=== PATIENT | female | born 1985 | race Caucasian/White ===

== ENCOUNTER 2020-04-01 11:29 | Outpatient (REF) | payer OTHER, SELFPAY ==
[2020-04-01 13:45] LABS: MANUAL DIFF FLAG NO
[2020-04-01 14:09] LABS: Basophils Absolute Auto 0.1 X10*3/uL (0.0-0.2); Basophils Percent Auto 0.9 % (0-2); Eosinophils Absolute Auto 0.1 X10*3/uL (0.0-0.4); Eosinophils Percent Auto 1.6 % (0-4); Hemoglobin 13.2 g/dl (12.0-16.0); Imm Gran Abs Auto 0.02 X10*3/uL (0.00-0.03); Imm Gran Pct Auto 0.3 % (0.0-0.4); Lymphocytes Absolute Auto 2.2 X10*3/uL (1.2-4.9); Lymphocytes Percent Auto 31.7 % (20-40); Mean Corpuscular HGB Conc 32.2 g/dl (31.0-35.0); Mean Corpuscular Hemoglobin 27.3 pg (27.0-33.0); Mean Corpuscular Volume 84.9 fL (80-98); Mean Platelet Volume 11.2 fL (9.4-12.3); Monocytes Absolute Auto 0.5 X10*3/uL (0.1-1.2); Monocytes Percent Auto 6.5 % (2-11); Neutrophils Absolute Auto 4.1 X10*3/uL (2.0-8.3); Platelet Count 356 X10*3/uL (160-400); Red Blood Count 4.83 X10*6/uL (4.20-5.50); Red Cell Distribution Width 13.1 % (11.0-16.0); White Blood Count 6.9 X10*3/uL (4.8-10.8)
[2020-04-01 14:22] LABS: Alanine Aminotransferase 14 U/L (0-31); Albumin Level 4.7 g/dL (3.5-5.0); Alkaline Phosphatase 68 U/L (39-117); Anion Gap 12 (12-20); Aspartate Amino Transferase 19 U/L (5-31); Bilirubin Total 0.4 mg/dL (0.0-1.0); Blood Urea Nitrogen 9 mg/dL (9-16); Calcium 9.2 mg/dL (8.4-10.2); Carbon Dioxide 30 mmol/L (22-29); Chloride 100 mmol/L (96-108); Cholesterol 252 mg/dL; Estimated Glomerular Filt Rate > 60; Glucose Random 77 mg/dL (60-115); HDL Cholesterol 77 mg/dL; LDL Cholesterol Calculated 155 mg/dl; Potassium 4.3 mmol/l (3.3-5.1); Sodium 138 mmol/L (135-145); Total Protein 8.1 g/dL (6.5-8.0); Triglycerides 102 mg/dL
[2020-04-04 09:31] LABS: TSpotTB Negative (SeeBelow)
== END 2020-04-01 11:30 | disposition home or self-care (01) ==
LOC: HO.10HDL 11:29
PROVIDERS: Visit Provider Internal Medicine
DX: Z02.1 Encounter for pre-employment examination (principal); E78.00 Pure hypercholesterolemia, unspecified
CPT/HCPCS: 36415; 80053; 80061; 85025; 86481

== ENCOUNTER 2021-10-22 10:28 | Outpatient (REF) | payer OTHER, SELFPAY ==
[2021-10-22 13:25] LABS: MANUAL DIFF FLAG NO
[2021-10-22 13:29] LABS: Basophils Absolute Auto 0.1 X10*3/uL (0.0-0.2); Basophils Percent Auto 0.8 % (0-2); Eosinophils Absolute Auto 0.2 X10*3/uL (0.0-0.4); Eosinophils Percent Auto 2.1 % (0-4); Hematocrit 39.9 % (37.0-47.0); Hemoglobin 13.2 g/dl (12.0-16.0); Imm Gran Abs Auto 0.03 X10*3/uL (0.00-0.03); Imm Gran Pct Auto 0.4 % (0.0-0.4); Lymphocytes Percent Auto 26.3 % (20-40); Mean Corpuscular HGB Conc 33.1 g/dl (31.0-35.0); Mean Corpuscular Hemoglobin 26.7 pg (27.0-33.0); Mean Corpuscular Volume 80.8 fL (80.0-98.0); Mean Platelet Volume 11.4 fL (9.4-12.3); Monocytes Absolute Auto 0.4 X10*3/uL (0.1-1.2); Monocytes Percent Auto 5.5 % (2-11); Neutrophils Absolute Auto 4.9 x10*3/uL (2.0-8.3); Neutrophils Percent Auto 64.9 % (45-73); Platelet Count 314 X10*3/uL (160-400); Red Blood Count 4.94 X10*6/uL (4.20-5.50); Red Cell Distribution Width 14.5 % (11.0-16.0); White Blood Count 7.6 X10*3/uL (4.8-10.8)
[2021-10-22 13:45] LABS: Anion Gap 13 (12-20); Blood Urea Nitrogen 9 mg/dL (9-16); Calcium 9.7 mg/dL (8.4-10.2); Carbon Dioxide 26 mmol/L (22-29); Chloride 102 mmol/L (96-108); Cholesterol 237 mg/dL; Estimated Glomerular Filt Rate > 60; Glucose Fasting 77 mg/dL (60-99); HDL Cholesterol 69 mg/dL; LDL Cholesterol Calculated 156 mg/dl; Potassium 4.6 mmol/L (3.3-5.1); Sodium 136 mmol/L (135-145); Triglycerides 60 mg/dL
[2021-10-24 12:56] LABS: TS Negative Control Passed; TS Panel A 0; TS Panel B 0; TS Positive Control Passed; TSpotTB Negative (Negative)
== END 2021-10-22 10:29 | disposition home or self-care (01) ==
LOC: HO.10HDL 10:28
PROVIDERS: Visit Provider Internal Medicine
DX: Z11.1 Encounter for screening for respiratory tuberculosis (principal); E78.00 Pure hypercholesterolemia, unspecified; Z83.3 Family history of diabetes mellitus
CPT/HCPCS: 36415; 80048; 80061; 85025; 86481

== ENCOUNTER 2023-09-16 07:39 | Outpatient (REF) | payer OTHER, SELFPAY ==
[2023-09-16 10:56] LABS: MANUAL DIFF FLAG NO
[2023-09-16 10:58] LABS: Basophils Absolute Auto 0.1 X10*3/uL (0.0-0.2); Basophils Percent Auto 1.2 % (0-2); Eosinophils Absolute Auto 0.1 X10*3/uL (0.0-0.4); Eosinophils Percent Auto 2.1 % (0-4); Hematocrit 39.3 % (37.0-47.0); Imm Gran Abs Auto 0.01 X10*3/uL (0.00-0.03); Imm Gran Pct Auto 0.2 % (0.0-0.4); Lymphocytes Absolute Auto 1.8 X10*3/uL (1.2-4.9); Lymphocytes Percent Auto 31.8 % (20-40); Mean Corpuscular HGB Conc 33.1 g/dl (31.0-35.0); Mean Corpuscular Hemoglobin 26.1 pg (27.0-33.0); Mean Corpuscular Volume 78.8 fL (80.0-98.0); Mean Platelet Volume 10.2 fL (9.4-12.3); Monocytes Absolute Auto 0.3 X10*3/uL (0.1-1.2); Monocytes Percent Auto 5.7 % (2-11); Neutrophils Absolute Auto 3.4 x10*3/uL (2.0-8.3); Platelet Count 385 X10*3/uL (160-400); Red Blood Count 4.99 X10*6/uL (4.20-5.50); Red Cell Distribution Width 14.2 % (11.0-16.0); White Blood Count 5.8 X10*3/uL (4.8-10.8)
[2023-09-16 11:38] LABS: Anion Gap 9 (12-20); Blood Urea Nitrogen 10 mg/dL (9-16); Calcium 9.4 mg/dL (8.4-10.2); Carbon Dioxide 32 mmol/L (22-29); Chloride 103 mmol/L (96-108); Cholesterol 239 mg/dL (<200); Estimated Glomerular Filt Rate > 60; Glucose Fasting 92 mg/dL (60-99); HDL Cholesterol 71 mg/dL (>40); LDL Cholesterol Calculated 159 mg/dL (<100); Potassium 4.4 mmol/L (3.3-5.1); Sodium 140 mmol/L (135-145); Triglycerides 49 mg/dL (<150)
[2023-09-19 13:03] LABS: TS Negative Control Passed; TS Panel A 0; TS Panel B 0; TS Positive Control Passed; TSpotTB Negative (Negative)
== END 2023-09-16 07:40 | disposition home or self-care (01) ==
LOC: HO.10HDL 07:39
PROVIDERS: Visit Provider Internal Medicine
DX: Z00.00 Encounter for general adult medical examination without abnormal findings (principal); Z11.1 Encounter for screening for respiratory tuberculosis; E78.00 Pure hypercholesterolemia, unspecified
CPT/HCPCS: 36415; 80048; 80061; 85025; 86481

== ENCOUNTER 2025-01-04 09:11 | Outpatient (AMB) | payer OTHER, SELFPAY ==
--- NOTE | 2025-01-04 09:07 | A.OFFPC_ITS ---
Vital Signs 01/04/25 09:12 01/04/25 09:14 Height 5 ft 2.5 in Weight 170 lb BMI 30.6 BP 158/100 H Blood Pressure Location Lt brachial Position Sitting Respiration 17 Pulse 102 H Pulse Source Pulse Oximeter Temp 97.2 F Temp Source Temporal Artery Scan Pulse Oximetry (%) 98 Oxygen Delivery Method Room Air Intake Visit Reasons: Routine Sign Letterer Required: No Accompanied by: Self / Same As Patient Allergies No Known Allergies Allergy (Verified 01/04/25 09:08) Tobacco use date assessed: 01/04/25 HPI HPI Comments History of Present Illness Details 39 year old female with a past medical h sitory of hyperlipidemia, eczema, allergic rhinitis, presenting for CPE . Last seen by PCP in Dec Patient continues to suffer from allergies. She switched from claritin to augusto about 6 months ago. Continues to have audible nasal congestion, rhinitis, PND, head fullness. Saw rehanger when 11 had dust mite allergies in addition to others. She would like referral to allergy She has not been sexually active. 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 HEENT: Denies changes in vision and hearing. RESPIRATORY: Denies SOB and cough. CV: Denies palpitations and CP GI: Denies abdominal pain, nausea, vomiting and diarrhea. : Denies dysuria and urinary frequency. MSK: Denies new myalgia and joint pain. SKIN: Denies rash and pruritus. NEUROLOGICAL: Denies headache PSYCHIATRIC: Denies recent changes in mood. PHYSICAL EXAM: GENERAL: Alert and oriented x 3. NAD EYES: EOMI. Anicteric. HENT: Moist mucous membranes. No scleral icterus. No cervical lymphadenopathy. LUNGS: Clear to auscultation bilaterally. CARDIOVASCULAR: Regular rate and rhythm. No murmur. No JVD. ABDOMEN: Soft, non-tender +bs EXTREMITIES: No edema. Non-tender. SKIN: No rashes or lesions. Warm. NEUROLOGIC: No focal neurological deficits. CN II-XII grossly intact PSYCHIATRIC: Cooperative. Appropriate mood and affect FORMERLY [facility], 1928–1983 Social History Patient Tobacco Use Status: Never used Tobacco e-Cigarette/Vaping Use: Never Used Questionnaire AUDIT C Alcohol Use Questionnaire (AUDIT-C) 1. How often do you have a drink containing alcohol?: Never Total Score: 0 Physical exam (Primary Care) Vital Signs: Last Vital Signs Temp 97.2 F 01/04/25 09:14 Pulse 102 H 01/04/25 09:14 Resp 17 01/04/25 09:14 BP 158/100 H 01/04/25 09:14 Pulse Ox 98 01/04/25 09:14 Oxygen Delivery Method Room Air 01/04/25 09:14 BMI result Body Mass Index 30.6 Tobacco/Smoking Status: Tobacco use Status Tobacco use date assessed 01/04/25 01/04/25 09:09 Patient Tobacco Use Status Never used Tobacco 01/04/25 09:16 e-Cigarette/Vaping Use Never Used 01/04/25 09:09 Coding Level of Care Code New Pt Prev Care 40-64y(66062) Diagnoses Physical exam Z00.00 Hyperlipidemia E78.5 Screening for metabolic disorder Z13.228 Allergic rhinitis, unspecified seasonality, unspecified trigger J30.9 Allergic rhinitis trigger: unspecified Allergic rhinitis seasonality: unspecified Assessment & Plan Assessment & Plan (1) Physical exam: Code(s): Z00.00 - Encounter for general adult medical examination without abnormal findings Category: Medical (2) Hyperlipidemia: Code(s): E78.5 - Hyperlipidemia, unspecified Category: Medical (3) Screening for metabolic disorder: Code(s): Z13.228 - Encounter for screening for other metabolic disorders Category: Medical (4) Allergic rhinitis: Code(s): J30.9 - Allergic rhinitis, unspecified Category: Medical Qualifiers: Allergic rhinitis trigger: unspecified Allergic rhinitis seasonality: unspecified Qualified Code(s): J30.9 - Allergic rhinitis, unspecified Plan 39 year old to establish care/cpe past medical, surgical, social reviewed Preventive measures for age discussed Mammo ordered. merchandising professor referral Allergic rhinitis-referral to allergy Labs ordered Orders: Orders MM tomosynthesis screening BI Today E78.5 - Hyperlipidemia, unspecified, Z01.419 - Encounter for gynecological examination (general) (routine) without abnormal findings, Z12.31 - Encounter for screening mammogram for malignant neoplasm of breast, Z13.0 - Encounter for screening for diseases of the blood and blood-forming organs and certain disorders involving the immune mechanism, Z13.228 - Encounter for screening for other metabolic disorders Complete Blood Count Auto Diff Today E78.5 - Hyperlipidemia, unspecified, Z01.419 - Encounter for gynecological examination (general) (routine) without abnormal findings, Z13.0 - Encounter for screening for diseases of the blood and blood-forming organs and certain disorders involving the immune mechanism, Z13.228 - Encounter for screening for other metabolic disorders Lipid Panel Today E78.5 - Hyperlipidemia, unspecified, Z01.419 - Encounter for gynecological examination (general) (routine) without abnormal findings, Z13.0 - Encounter for screening for diseases of the blood and blood-forming organs and certain disorders involving the immune mechanism, Z13.228 - Encounter for screening for other metabolic disorders TSH reflex Free T4 Today E78.5 - Hyperlipidemia, unspecified, Z01.419 - Encounter for gynecological examination (general) (routine) without abnormal fin dings, Z13.0 - Encounter for screening for diseases of the blood and blood- forming organs and certain disorders involving the immune mechanism, Z13.228 - Encounter for screening for other metabolic disorders Comprehensive Met. Panel Today E78.5 - Hyperlipidemia, unspecified, Z01.419 - Encounter for gynecological examination (general) (routine) without abnormal findings, Z13.0 - Encounter for screening for diseases of the blood and blood- forming organs and certain disorders involving the immune mechanism, Z13.228 - Encounter for screening for other metabolic disorders Hemoglobin A1c Today E78.5 - Hyperlipidemia, unspecified, Z01.419 - Encounter for gynecological examination (general) (routine) without abnormal findings, Z13.0 - Encounter for screening for diseases of the blood and blood-forming organs and certain disorders involving the immune mechanism, Z13.228 - Encounter for screening for other metabolic disorders Referrals EMS COORDINATOR Referral Z01.419 - Encounter for gynecological examination (general) (routine) without abnormal findings Allergy & Immunology Referral J30.9 - Allergic rhinitis, unspecified
[2025-01-04 09:12] VITALS: BMI 30.6
[2025-01-04 09:14] VITALS: BP 158/100; PULSE 102; RESP 17; TEMP 36.2; O2SAT 98
--- OUTSIDE RECORDS SUMMARY | 2025-01-04 09:33 | XMS_ITS ---
Author Name [facility] Organization Unknown Encounters Encounter Type Encounter Reason Primary Diagnosis Location Date Ambulatory [facility] ([facility] 05/13/2022 Care Team Organization Name Specialty Phone Email [facility] Date [facility]
== END 2025-01-04 09:29 | disposition home or self-care (01) ==
LOC: HO.HMCHD 09:11
PROVIDERS: PCP Internal Medicine; Visit Provider Internal Medicine
DX: Z00.00 Encounter for general adult medical examination without abnormal findings (principal); E78.5 Hyperlipidemia, unspecified; Z13.228 Encounter for screening for other metabolic disorders; J30.9 Allergic rhinitis, unspecified

== ENCOUNTER → 2025-01-04 09:11 | Outpatient (BNVA) | payer OTHER, SELFPAY | PROVIDERS: PCP Internal Medicine; Visit Provider Internal Medicine | DX: Z00.00 Encounter for general adult medical examination without abnormal findings (principal); E78.5 Hyperlipidemia, unspecified; J30.9 Allergic rhinitis, unspecified | CPT/HCPCS: 99386 ==

== ENCOUNTER 2025-03-28 15:23 | Outpatient (REF) | payer OTHER, SELFPAY ==
--- OUTSIDE RECORDS SUMMARY | 2025-03-28 19:44 | XMS_ITS | Data Portability ---
Author Organization [facility] [address] Address [address] [place] [address] Assessment No assessment recorded. Plan of Treatment Reminders Order Date Submit Date Provider Last Modified By Organization Details Last Modified Time Details Appointments None recorded. Lab rapid SARS CoV 2 Ag, QL IA, respiratory specimen 2021 [place] [id number], [address], 14:53:56 Referral None recorded. Procedures None recorded. Surgeries None recorded. Imaging None recorded. Medication Orders benzonatate 200 mg capsule 2021 [facility]/Pharmacy #[id number], [address] [place], [address], 14:53:56 loratadine 10 mg tablet [address]/Pharmacy #[id number], [address] [place], [address], 15:21:12 Patient TargetsNo targets recorded. Patient Instructions Encounter Date Encounter Id Patient Instructions Last Modified By Organization Details Last Modified Time 05/07/2022 [id number] coronavirus (covid-19): care instructions [place] [id number] Not available 05/07/2022 14:53:56 You have been Diagnosed with COVID - your Rapid COVID test was positive. I recommend the following to help with your symptoms of this viral infection: 1. Take Ibuprofen or Tylenol if you do not have any allergies to these medications. If you take a blood thinner you should not take NSAIDS like Ibuprofen. These medication will help with the inflammation in your respiratory tract which should help the cough. 2. I suggest taking a Antihistamine (loratadine or cetirizine or Amaris or benadryl) - to help with the congestion. I would advise this over a decongestant. 3. Saline Nasal Rice 4. Salt Water Gargles. I would be seen again immediately in the Emergency Room if you develop: 1. Shortness of Breath 2. Chest Pain 3. Fever > 101.0 4. Lethargy or Confusion. You should notify you PCP that you have been diagnosed with this infection. Below is the current CDC guidelines. Updated CDC Guidelines for Quarantine and Testing - 06/07/2021 If You Test Positive for COVID-19 (Isolate) Everyone, regardless of vaccination status. 1. Stay home for 5 days. 2. If you have no symptoms or your symptoms are resolving after 5 days, you can leave your house. 3. Continue to wear a mask around others for 5 additional days. If you have a fever or feel worse, continue to stay home until your fever resolves. If You Were Exposed to Someone with COVID-19 (Quarantine) If you: Have been boosted OR Completed the primary series of Pfizer or Moderna vaccine within the last 6 months. OR Completed the primary series of J&J vaccine within the last 2 months 1. Wear a mask around others for 10 days. 2. Test on day 5, if possible. 3. If you develop symptoms get a test and stay home. If you: Completed the primary series of Pfizer or Moderna vaccine over 6 months ago and are not boosted OR Completed the primary series of J&J over 2 months ago and are not boosted OR Are un-vaccinated 1. Stay home for 5 days. After that continue to wear a mask around others for 5 additional days. 2. Test on day 5, if possible. If you develop symptoms get a test and stay home Quarantine Calculation: Day 0: is the first day of symptoms or a positive viral test. Day 1: is the first full day after your symptoms developed or when your test specimen was collected. Exposure: Day 1: is the first full day after your last known contact with a person that tested positive for COVID 19. [facility] Thank you for visiting [facility] today, please feel free to call our office you have any questions or concerns. [email or web address] Not available 05/07/2022 14:39:52 Reason for Referral None Reported. Results Created Date Observation Date Name Description Value Unit Range Abnormal Flag Note LastModifiedBy Organization Detail LastModifiedTime 05/07/20 22 05/07/2022 rapid SARS CoV 2 Ag, QL IA, respi rator y speci men Unknown Analyte Normal =Negat pavithra Not Available [address], [address], 05/07/2022 14:08:37 05/07/20 22 05/07/2022 rapid SARS CoV 2 Ag, QL IA, respi rator y speci men Unknown Analyte positi ve Not Available [address] [address], [address], 05/07/2022 14:08:37 Result Notes None recorded. Problems No Known Problems Medical Equipment None Reported. Allergies No known drug allergies Medications Name Sig Start Date Stop Date Status Note LastModified by Organization Details LastModified Time benzonatate 200 mg capsule TAKE 1 CAPSULE BY MOUTH THREE TIMES A DAY active Not Available Not Available No t Available prednisone 20 mg tablet TAKE 1 TABLET BY MOUTH EVERY DAY 05/07 completed Not Available Not Available Not Available fluticasone propionate 50 mcg/actuati on nasal spray,suspe nsion USE 1 SPRAY INTO BOTH NOSTRILS TWICE A DAY 05/07 completed Not Available Not Available Not Available loratadine 10 mg tablet TAKE 1 TABLET BY MOUTH EVERY DAY active Not Available Not Available No t Available loratadine 10 mg capsule Take by oral route. active Not Available Not Available No t Available Vitals Date Recorded Systolic And Diastolic Provider Name and Address Organization Details Last Updated DateTime 05/07/2022 124/70 mm[Hg] JESUS CALDERON [address] [place], [address], [place] - [facility] 05/07/2022 15:21:12 Date Recorded Oxygen saturation Oxygen saturation in Arterial blood by Pulse oximetry Heart rate Respiratory rate Body temperature Systolic And Diastolic Systolic And Diastolic Provider Name and Address Organization Details Last Updated DateTime 98 % 98 % 94 /min 18 /min 98.5 [degF] 171/119 mm[Hg] 164/92 mm[Hg] Eula Stanley PA - [facility] 2 14:31:26 Date Recorded Body height Body mass index (BMI) Body weight Provider Name and Address Organization Details Last Updated DateTime 05/07/2022 158.75 cm 30.1 kg/m2 43580.93 g FOSTER SHERIDAN PA - [facility] 05/07/2022 14:10:22 Social History Question Answer Notes LastModified by Self-A-r-T Details LastModified Time Tobacco Smoking Status Never Smoker FOSTER dillon [place] - [facility] 05/07/2022 14:09:56 What Is The Highest Grade Or Level Of School You Have Completed Or The Highest Degree You Have Received? [id number] [email or web address] Information not available 05/07/2022 What Is Your Water Source? City [email or web address] Information not available 05/07/2022 What Is Your Heat Source? Electric Information not available 05/07/2022 Have You Had Direct Contact, Or Contact During Intimacy, With Monkeypox Rash, Scabs, Or Body Fluids From A Person With Monkeypox? No [email or web address] Information not available 05/07/2022 What Is Your Relationship Status? Unknown Information not available 05/07/2022 Have You Recently Traveled Abroad? No Information no t available 05/07/2022 Are You Currently In School? No Information not available 05/07/2022 Sex: Unknown Functional Status Question Answer Note LastModified by Self-A-r-T Details LastModified Time Do you use any illicit or recreational drugs? No [email or web address] Information not available 05/07/2022 Do you or have you ever used any other forms of tobacco or nicotine? No [email or web address] Information not available 05/07/2022 What is your level of alcohol consumption? None [email or web address] Information not available 05/07/2022 Are you currently employed? No [email or web address] Information not available 05/07/2022 Mental Status None recorded. Family History Relationship Description Onset Age of this Age Resolved Age Notes LastModified by Organization Details LastModified Time Father No current problems or disability [email or web address] Not available 05/07/2022 14:09:47 Mother No current problems or disability [email or web address] Not available 05/07/2022 14:09:47 Medical History No medical history recorded. Gynecological HistoryNo gynecological history recorded. Obstetrics History GPAL:G 0 P 0 0 0 0 Past Encounters Encounter ID Performer Location Encounter Start Date Encounter Closed Date Diagnosis/Indication Diagnosis SNOMED-CT Code Diagnosis ICD10 Code Diagnosis IMO Codes Diagnosis Note [id number] [address] [place] [address] 10/28/2021 09:11:34 10/28/2021 12:15:50 [id number] [address] [place] [address] 10/02/2021 09:02:22 10/02/2021 10:09:21 [id number] [address] [place] [address] 05/01/2021 08:46:44 05/01/2021 12:06:31 [id number] JESUS CALDERON [address] [place] [address] 05/07/2022 10:32:52 05/07/2022 14:52:27 COVID-19 [id number] U07.1 Health Concerns Section Related Observation LastModified by Organization Detai ls LastModified Time None Recorded Concern Status LastModified by Organization Details LastModified Time None Recorded Advance Directives Directive None Recorded Payers Insurance Date Sequence Insurance Name Policy Number Policy Samayoa Covered Member ID Samayoa Member ID Guarantor Name 05/26/2022 1 [facility] [id number] Mahnaz Pak [id number] Mahnaz Pak Notes Date Note Type Note Provider Name and Address Organization Details Recorded Time 2 text/html COVID-19 SymptomsReported by PatientUpper Respiratory SymptomsFor covid-19 signs and symptoms, patient reportscough worsening. CoughReported by PatientHPIFor timing, patient reportsworseningbut reportsgradual. For associated symptoms, patient reportspost nasal dripbut reportsno fever,no chills,no nausea, andno vomiting. For source of patient information, patient reportsinformation obtained from patientandpatient arrived at urgent care ambulatory. For severity, patient reportsmild. For duration, patient reports5 days.The patient reports had like a cold last week. Noticed in the last 2 days symptoms worsened. Her client has been having a bad cough and has been sick since Wednesday. The patient does not have a fever. The patient denies sOB but has history of asthma. JESUS CALDERON [address] [place], [address], [place] - [facility] 05/07/2022 15:21:20 OBGyn Episode No OBEpisode recorded.
== END 2025-03-28 15:24 | disposition home or self-care (01) ==
LOC: HO.MAMMO 15:23
PROVIDERS: PCP Internal Medicine; Visit Provider Internal Medicine
DX: Z12.31 Encounter for screening mammogram for malignant neoplasm of breast (principal)
CPT/HCPCS: 77063; 77067

== ENCOUNTER → 2025-03-28 15:45 | Outpatient (BNV) | payer OTHER, SELFPAY | PROVIDERS: PCP Internal Medicine; Visit Provider Radiology Body Imaging | DX: Z12.31 Encounter for screening mammogram for malignant neoplasm of breast (principal) | CPT/HCPCS: 77063; 77067 ==

== ENCOUNTER 2025-04-30 09:23 | Outpatient (AMB) | payer OTHER, SELFPAY ==
--- NOTE | 2025-04-30 09:27 | A.OFFPC_ITS ---
Vital Signs 04/30/25 09:31 Height 5 ft 2.5 in Weight 74.389 kg BMI 29.5 Respiration 16 Pulse 104 H Pulse Source Pulse Oximeter Temp 97.9 F Temp Source Oral Pulse Oximetry (%) 96 Oxygen Delivery Method Room Air Intake Visit Reasons: work paperwork and req. 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 Accompanied by: Self / Same As Patient Allergies No Known Allergies Allergy (Verified 04/30/25 09:27) Medication List - Last Reconciled 04/30/25 by JESUS Alegria fexofenadine (Amaris Allergy) 180 mg PO DAILY triamcinolone acetonide 0.5% appl topical Tobacco use date assessed: 01/04/25 Dental Screening Did you have a dental visit in the last 12 months?: Yes Did you have a dental problem in the last 6 months where you did not have access to dental care?: No Was dental information given to patient?: Patient has dentist HPI HPI Comments History of Present Illness Details History of Present Illness The patient is a 40 year old individual presenting for follow-up and requires te sting for work Allergic rhinitis: - The patient has a long-standing histor y of allergies, with persistent nasal congestion for the last four to five months. - Allergy testing revealed allergies to environmental sources including dust, dust mites, dogs, cats, mold, and an unspecified plant. - There are no food allergies. - The patient denies associated sore thr oat or rashes. - The patient started allergy immunother apy shots about a month ago, which are administered weekly and will later transition to monthly. - The patient uses Amaris and previousl y tried Claritin without effect. Overweight: - The patient has a BMI of 29.5. - The patient reports eating unhealthily and being inactive. Health Maintenance: - The patient's first mammogram was on O and was normal, though it noted dense breast tissue. - The patient is overdue for gynecologic al exam but has one scheduled for May 21. - The patient requires a TB test for wor k but did not complete a previous lab o rder for it. Medical History: - Allergic rhinitis, with known allergie s to dust, dust mites, dogs, cats, and mold - Childhood asthma, resolved Surgical History: - No prior surgeries reported. 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 - Nutrition: Reports consuming an unheal thy diet and drinks iced coffee with syrup. - Exercise: Reports being inactive and n ot exercising. - Sexual History: Reports never having b een sexually active. Family History: - Mother: History of asthma and diet-con trolled diabetes. - Mother: History of dense, fibrocystic breast tissue. - Denies family history of colon cancer. Diagnostic Results: - Mammogram (03/24): Normal results with a note of dense breast tissue. Review of Systems - HEENT: Reports persistent nasal conges tion for the past 4-5 months. Denies sore throat. - Respiratory: Denies recent asthma symp toms. - Integumentary: Denies rashes. - General: Denies any other concerns. Vital Signs - Body Mass Index: 29.5 kg/m?? Health Maintenance - Breast cancer screening: The patient c ompleted a first mammogram on March 24, which was normal but showed dense breast tissue. - Self-breast exams: Advised to perform monthly due to dense breast tissue. - Gynecological care: Has an upcoming ap pointment for a first gynecological exam on May 21. - Colon cancer screening: Advised to sta rt screening with colonoscopy at age 44. - Tuberculosis screening: A TB test will be performed today for a work requirement. - Weight management: Counseling provided on diet and exercise due to a BMI of 29.5. Physical Exam Constitutional: Awake and alert, no apparent distress Heart: RRR, S1S2, no murmurs, no edema Lungs: CTA bilaterally, no wheezing Extremities: No calf tenderness Skin: Warm and dry Neuro: Alert and oriented x 3 Assessment and Plan 1. Allergic Rhinitis The patient has chronic congestion managed by an adjunct instructor in economics. The current plan includes continuing allergy immunotherapy shots, which started a month ago, and using Amaris as needed. The patient will follow up with the adjunct instructor in economics in July. 2. Overweight The patient's BMI is 29.5. Provided counseling on weight management with a goal BMI under 25. Recommendations include a calorie-deficit diet (7884-7924 calories/day), increased protein, fruits, and vegetables, and limiting refined sugars and simple carbs. Advised at least 150 minutes of moderate-intensity exercise per week. A handout was provided. 3. Health Maintenance The patient had a normal first mammogram but has dense breasts, and was advised to perform self-breast exams. The patient is scheduled for a first PATIENT SERVICES CLERK exam and was advised to start colonoscopy screening at age 44. Baseline labs, including blood counts, electrolytes, kidney and liver function, and a diabetes screen, will be drawn today, along with a TB test for work. A physical is pre-scheduled for next year. 4. Administrative Will complete the patient's required physical form for work once lab results are available and fax it as requested. A copy will be mailed to the patient. Plan - Will obtain baseline labs today, inclu ding blood counts, electrolytes, kidney function, liver function, and a diabetes screen. - A TB test will be performed today. - Continue with allergy immunotherapy as directed by the adjunct instructor in economics. - The patient will proceed with the [facility] gynecological appointment on May 21. - Counseled on diet modifications (calor ie deficit, increased protein/fruits/vegetables, limit refined sugars) and exercise (150 minutes of moderate intensity per week) for weight management. - Advised to perform monthly self-breast exams. - Plan for first colonoscopy at age 44. - Lab results will be mailed; will call for any significantly abnormal results. - Will complete and fax work-related phy sical form after results are in. - Follow up for the next annual physical as scheduled. Patient was informed and verbally consented to the use of an ambient scribe for clinic note documentation during this visit. Discussion Notes I introduced myself as the patient's new primary care provider. We discussed the patient's persistent allergic congestion, noting that the patient is appropriately under the care of an adjunct instructor in economics and has started immunotherapy. I reviewed the recent mammogram results, explaining that dense breast tissue is a normal finding but warrants performing monthly self-breast exams to be familiar with the patient's baseline breast tissue. I also discussed the patient's BMI of 29.5, which falls in the overweight category, and provided detailed counseling on diet and exercise for weight management, offering a handout with information. We discussed the plan for health maintenance, including an upcoming first PATIENT SERVICES CLERK exam, the recommendation for colonoscopy at age 44, and the need for a TB test for work. The patient agreed to proceed to the lab today for baseline blood work and the TB test. I informed the patient that lab results would be mailed, but I would call for any significantly abnormal findings, and that we would complete and fax the work physical form as requested. Patient Instructions - Go to the lab today to get your blood drawn for a TB test and other blood tests. - Continue your allergy shots as directe d by your specialist. - Check your breasts once a month so you know what they normally feel like. - Keep your appointment with the PATIENT SERVICES CLERK rosalia miranda, Ayana Ruiz, on May 21. - To help manage your weight, aim to be in a calorie deficit by consuming 1500- 2000 calories per day, focusing on protein, fruits, and vegetables while limiting sugar. - Try to get at least 150 minutes of exe rcise per week, such as brisk walking, going up and down stairs, or doing pushups against a wall. - You will receive a copy of your lab re sults in the mail. We will call you if anything is urgent. - We will fill out your work form and fa x it for you. [facility] Medical History (Updated 04/30/25 @ 15:45 by JESUS Alegria) Vitamin D deficiency Allergic rhinitis Hyperlipidemia Surgical History (Updated 04/30/25 @ 09:47 by JESUS Alegria) No pertinent past surgical history Family History (Updated 04/30/25 @ 09:52 by JESUS Alegria) Mother Asthma Diet-controlled diabetes mellitus Social History Housing: House Patient Tobacco Use Status: Never used Tobacco e-Cigarette/Vaping Use: Never Used service: No Current occupational status: employed Cognitive needs: No Hearing needs: No Vision needs: Yes (PRN) Physical exam (Primary Care) Vital Signs: Last Vital Signs Temp 97.9 F 04/30/25 09:31 Pulse 104 H 04/30/25 09:31 Resp 16 04/30/25 09:31 Pulse Ox 96 04/30/25 09:31 Oxygen Delivery Method Room Air 04/30/25 09:31 BMI result Body Mass Index 29.5 Tobacco/Smoking Status: Tobacco use Status Tobacco use date assessed 01/04/25 12 09:29 Patient Tobacco Use Status Never used Tobacco 04/30/25 09:29 e-Cigarette/Vaping Use Never Used 12/01/25 09:29 Coding Level of Care Code Complex visit Add On G2211 Diagnoses Allergic rhinitis, unspecified seasonality, unspecified trigger J30.9 Allergic rhinitis trigger: unspecified Allergic rhinitis seasonality: unspecified Hyperlipidemia E78.5 Microcytic anemia D50.9 Vitamin D deficiency E55.9 Assessment & Plan Assessment & Plan (1) Allergic rhinitis: Code(s): J30.9 - Allergic rhinitis, unspecified Category: Medical Qualifiers: Allergic rhinitis trigger: unspecified Allergic rhinitis seasonality: unspecified Qualified Code(s): J30.9 - Allergic rhinitis, unspecified Plan: Continue following with Allergy for injections. Continue Amaris (2) Hyperlipidemia: Code(s): E78.5 - Hyperlipidemia, unspecified Category: Medical Plan: Lipid panel ordered. Diet low in saturated fats, highly processed foods as well as increased exercise advised. (3) Microcytic anemia: Code(s): D50.9 - Iron deficiency anemia, unspecified Category: Medical Plan: Iron panel added (4) Vitamin D deficiency: Code(s): E55.9 - Vitamin D deficiency, unspecified Category: Medical Plan: Add vit d 50,000 units weekly x 8 weeks, then take 2000 units daily Plan Follow up for annual physical exam. Tspot ordered and forms to be completed once available Orders: Orders Basic Metabolic Panel Today E78.5 - Hyperlipidemia, unspecified, Z13.0 - Encounter for screening for diseases of the blood and blood-forming organs and certain disorders involving the immune mechanism, Z13.228 - Encounter for screening for other metabolic disorders Lipid Panel Today E78.5 - Hyperlipidemia, unspecified, Z13.0 - Encounter for screening for diseases of the blood and blood-forming organs and certain disorders involving the immune mechanism, Z13.228 - Encounter for screening for other metabolic disorders TSH reflex Free T4 Today E78.5 - Hyperlipidemia, unspecified, Z13.0 - Encounter for screening for diseases of the blood and blood-forming organs and certain disorders involving the immune mechanism, Z13.228 - Encounter for screening for other metabolic disorders Vitamin D 25-OH Total Today E78.5 - Hyperlipidemia, unspecified, Z13.0 - Encounter for screening for diseases of the blood and blood-forming organs and certain disorders involving the immune mechanism, Z13.228 - Encounter for screening for other metabolic disorders T Spot TB Today Z11.1 - Encounter for screening for respiratory tuberculosis Complete Blood Count Auto Diff Today E78.5 - Hyperlipidemia, unspecified, Z13.0 - Encounter for screening for diseases of the blood and blood-forming organs and certain disorders involving the immune mechanism, Z13.228 - Encounter for screening for other metabolic disorders Hemoglobin A1c Today E78.5 - Hyperlipidemia, unspecified, Z13.0 - Encounter for screening for diseases of the blood and blood-forming organs and certain disorders involving the immune mechanism, Z13.228 - Encounter for screening for other metabolic disorders Liver Panel Today E78.5 - Hyperlipidemia, unspecified, Z13.0 - Encounter for screening for diseases of the blood and blood-forming organs and certain disord ers involving the immune mechanism, Z13.228 - Encounter for screening for other metabolic disorders IRON PROFILE Today D50.9 - Iron deficiency anemia, unspecified
[2025-04-30 09:31] VITALS: PULSE 104; RESP 16; TEMP 36.6; O2SAT 96; BMI 29.5
== END 2025-04-30 10:00 | disposition home or self-care (01) ==
LOC: HO.HMCHD 09:23
PROVIDERS: PCP Internal Medicine; Visit Provider Physician Assistant
DX: J30.9 Allergic rhinitis, unspecified (principal); E78.5 Hyperlipidemia, unspecified; D50.9 Iron deficiency anemia, unspecified; E55.9 Vitamin D deficiency, unspecified

== ENCOUNTER 2025-04-30 09:23 | Outpatient (REF) | payer OTHER, SELFPAY | END 2025-04-30 09:24 | disposition home or self-care (01) | LOC: HO.LAB 09:23 | PROVIDERS: PCP Internal Medicine; Visit Provider Physician Assistant | DX: Z02.1 Encounter for pre-employment examination (principal); J30.9 Allergic rhinitis, unspecified; E78.5 Hyperlipidemia, unspecified; D50.9 Iron deficiency anemia, unspecified; E55.9 Vitamin D deficiency, unspecified; E66.3 Overweight | CPT/HCPCS: 99212 ==

== ENCOUNTER 2025-04-30 10:04 | Outpatient (REF) | payer OTHER, SELFPAY ==
--- OUTSIDE RECORDS SUMMARY | 2025-04-30 12:18 | XMS_ITS | Data Portability ---
Author Organization [facility], [address] Address [address] [place] [address] Assessment No assessment recorded. Plan of Treatment Reminders Order Date Submit Date Provider Last Modified By Organization Details Last Modified Time Details Appointments None recorded. Lab rapid SARS CoV 2 Ag, QL IA, respiratory specimen [address] [place] [id number], [address], 14:53:56 Referral None recorded. Procedures None recorded. Surgeries None recorded. Imaging None recorded. Medication Orders benzonatate 200 mg capsule 2021 [facility]/Pharmacy #[id number], [address] [place], [address], 14:53:56 loratadine 10 mg tablet [address]/Pharmacy #[id number], [address] [place], [address], 15:21:12 Patient TargetsNo targets recorded. Patient Instructions Encounter Date Encounter Id Patient Instructions Last Modified By Organization Details Last Modified Time 05/07/2022 [id number] coronavirus (covid-19): care instructions [place] [id number] Not available 05/07/2022 14:53:56 You have been [...] this over a decongestant. 3. Saline Nasal [place] 4. Salt Water Gargles. I would be [...] AND HUMAN SERVICES Thank you for visiting [facility] today, please feel free to call our office you have any questions or concerns. [email or web address] Not available 05/07/2022 14:39:52 Reason for Referral None Reported. Results Created Date Observation Date Name Description Value Unit Range Abnormal Flag Note LastModifiedBy Organization Detail LastModifiedTime 05/07/20 22 05/07/2022 rapid SARS CoV 2 Ag, QL IA, respi rator y speci men Unknown Analyte Normal =Negat pavithra Not Available [address], [address], 05/07/2022 14:08:37 05/07/20 22 05/07/2022 rapid SARS CoV 2 Ag, QL IA, respi rator y speci men Unknown Analyte positi ve Not Available [address], [address], 05/07/2022 14:08:37 Result Notes None recorded. Problems [...] mm[Hg] JESUS CALDERON [address] [place], [address], [place] - [facility] 05/07/2022 15:21:12 Date Recorded Oxygen saturation Heart rate Respiratory rate Body temperature Systolic And Diastolic Systolic And Diastolic Provider Name and Address Organization Details Last Updated DateTime 2 98 % 94 /min 18 /min 98.5 [degF] 171/119 mm[Hg] 164/92 mm[Hg] Eula Angel [place] - [facility] 2 14:31:26 Date Recorded Body height Body mass index (BMI) Body weight Provider Name and Address Organization Details Last Updated DateTime 05/07/2022 158.75 cm 30.1 kg/m2 99370.93 g FOSTER VIOLET SHERIDAN [place] - [facility] 05/07/2022 14:10:22 Social History Question Answer Notes LastModified by [email or web address] Details LastModified Time Tobacco Smoking Status Never Smoker FOSTER dillon, [place] - [facility] 05/07/2022 14:09:56 What Is The Highest Grade Or Level Of School You Have Completed Or The Highest Degree You Have Received? [id number] [email or web address] Information not available 05/07/2022 What Is Your Water Source? City Information not available 05/07/2022 What Is Your Heat Source? Electric [email or web address] Information not available 05/07/2022 Have You Had Direct Contact, Or Contact During Intimacy, With Monkeypox Rash, Scabs, Or Body Fluids From A Person With Monkeypox? No [email or web address] Information not available 05/07/2022 What Is Your Relationship Status? Unknown Information not available 05/07/2022 Have You Recently Traveled Abroad? No [email or web address] Information no t available 05/07/2022 Are You Currently In School? No Information not available 05/07/2022 Sex: Unknown Functional Status Question Answer Note LastModified by [email or web address] Details LastModified Time Do you use any illicit or recreational drugs? No Information not available 05/07/2022 Do you or have you ever used any other forms of tobacco or nicotine? No [email or web address] Information not available 05/07/2022 What is your level of alcohol consumption? None Information not available 05/07/2022 Are you currently employed? No Information not available 05/07/2022 Mental Status None [...] ICD10 Code Diagnosis IMO Codes Diagnosis Note [id number] [address] [place] [address] 10/28/2021 09:11:34 10/28/2021 12:15:50 [id number] [address] [place] [address] 10/02/2021 09:02:22 10/02/2021 10:09:21 [id number] [address] [place] [address] 05/01/2021 08:46:44 05/01/2021 12:06:31 [id number] JESUS CALDERON [address] [place] [address] 05/07/2022 10:32:52 05/07/2022 14:52:27 COVID-19 [id number] U07.1 Health Concerns Section Related Observation LastModified by Organization Detai ls LastModified Time None Recorded Concern Status LastModified by Organization Details LastModified Time None Recorded Advance Directives Directive None Recorded Payers Insurance Date Sequence Insurance Name Policy Number Policy Samayoa Covered Member ID Samayoa Member ID Guarantor Name 05/26/2022 1 [facility] [id number] Mahnaz Pak [id number] Mahnaz Pak Notes Date Note Type [...] has history of asthma. JESUS CALDERON [address] [place], [address], [place] - [facility] 05/07/2022 15:21:20 OBGyn Episode No OBEpisode recorded.
[2025-04-30 13:09] LABS: MANUAL DIFF FLAG NO
[2025-04-30 13:35] LABS: Hematocrit 33.0 % (37.0-47.0); Hemoglobin 10.0 g/dl (12.0-16.0); Imm Gran Abs Auto 0.02 X10*3/uL (0.00-0.03); Imm Gran Pct Auto 0.3 % (0.0-0.4); Lymphocytes Absolute Auto 1.9 X10*3/uL (1.2-4.9); Mean Corpuscular HGB Conc 30.3 g/dl (31.0-35.0); Mean Corpuscular Hemoglobin 21.6 pg (27.0-33.0); Mean Corpuscular Volume 71.1 fL (80.0-98.0); NRBC Abs Auto 0.000 X10*3/uL (0.0-0.012); NRBC Pct Auto 0.0 /100WBC (0.0-0.2); Platelet Count 357 X10*3/uL (160-400); Red Blood Count 4.64 X10*6/uL (4.20-5.50); White Blood Count 7.8 X10*3/uL (4.8-10.8)
[2025-04-30 13:55] LABS: Alanine Aminotransferase 15 U/L (0-31); Albumin Level 4.7 g/dL (3.5-5.0); Alkaline Phosphatase 70 U/L (39-117); Anion Gap 11 (12-20); Aspartate Amino Transferase 26 U/L (5-31); Blood Urea Nitrogen 13 mg/dL (9-16); Calcium 9.2 mg/dL (8.4-10.2); Carbon Dioxide 28 mmol/L (22-29); Chloride 103 mmol/L (96-108); Cholesterol 225 mg/dL (<200); Estimated Glomerular Filt Rate > 60; HDL Cholesterol 77 mg/dL (>40); Potassium 4.1 mmol/L (3.3-5.1); Sodium 138 mmol/L (135-145); Total Protein 7.9 g/dL (6.5-8.0); Triglycerides 85 mg/dL (<150)
[2025-04-30 17:42] LABS: Iron 22 mcg/dL (30-160); Percent Iron Saturation 6 % (15-50); Total Iron Binding Capacity 398 mcg/dL (228-428); Unsaturated Iron Binding 376 ug/dL
[2025-05-03 02:34] LABS: TS Negative Control Passed; TS Panel A 1; TS Panel B 1; TS Positive Control Passed; TSpotTB Negative (Negative)
== END 2025-04-30 10:05 | disposition home or self-care (01) ==
LOC: HO.10HDL 10:04
PROVIDERS: Visit Provider Physician Assistant
DX: Z11.1 Encounter for screening for respiratory tuberculosis (principal); Z13.228 Encounter for screening for other metabolic disorders; Z13.0 Encounter for screening for diseases of the blood and blood-forming organs and certain disorders involving the immune mechanism; E78.5 Hyperlipidemia, unspecified
CPT/HCPCS: 36415; 80048; 80061; 80076; 82306; 83036; 83540; 84443; 85025; 86481

== ENCOUNTER 2025-05-21 14:52 | Outpatient (AMB) | payer OTHER, SELFPAY ==
--- NOTE | 2025-05-21 14:58 | MHC.OFFVIS ---
Vital Signs 05/21/25 14:59 Height 5 ft 2.5 in Weight 162 lb 4 oz BMI 29.2 BP 140/66 H Blood Pressure Location Lt brachial Position Sitting Intake Visit Reasons: New patient Annual Allergies No Known Allergies Allergy (Verified 05/21/25 15:04) Medication List - Last Reconciled 05/21/25 by Ayana Ruiz CNM cholecalciferol (vitamin D3) 1,250 mcg PO QWEEK cholecalciferol (vitamin D3) 50 mcg PO DAILY fexofenadine (Amaris Allergy) 180 mg PO DAILY iron,carbonyl-vitamin C 65 mg iron- 125 mg (Vitron-C) 1 tab PO DAILY triamcinolone acetonide 0.5% appl topical Is last menstrual period known: Yes Last menstrual period: 05/17/25 HPI HPI New patient Annual: Details: 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 She says her mother has thalassemia Patient is unsure about whether not she wants to have her 1st pelvic and in the end she decided she was not ready to today because she is nervous and she still has her. It started on the and is fading now on the She works as a home health aide. She thinks she does not eat as well as she could and she does eat [employer] on the weekend and gets [employer] donuts every day and she does eat things like candy and chips. She does have some lesions on her arms in front of her elbows and her legs that she says were eczema and she was given a cream that she sometimes forgets to use. [facility] Medical History Iron deficiency anemia Vitamin D deficiency Allergic rhinitis Hyperlipidemia Surgical History No pertinent past surgical history Family History Mother Asthma Diet-controlled diabetes mellitus Social History Housing: House Patient Tobacco Use Status: Never used Tobacco e-Cigarette/Vaping Use: Never Used service: No Current occupational status: employed Cognitive needs: No Hearing needs: No Vision needs: Yes (PRN) Female Reproductive History Menstrual Age of Menarche: 9 Duration of menses: 3-5 days Date of last menstrual period: 05/17/25 control method: none Total pregnancies: 0 Physical Exam Vital Signs: Last Vital Signs BP 140/66 H 05/21/25 14:59 BMI result Body Mass Index 29.2 Const Other: Patient has some raised purplish lesions about 2 cm distal to elbow on inferior surface that she says gets itchy and she scratches. General: healthy appearing, comfortable, no acute distress, well developed and alert Nutritional Appearance: average body habitus Orientation/consciousness: patient oriented x3 Limitations: no limitations HEENT Head: Yes normocephalic Neck Neck: Yes normal visual inspection Thyroid: Thyroid normal Chest Chest palpation & inspection: normal inspection of the chest Breast/axilla inspection: normal inspection of the breasts and normal inspection of the axillae Breast/axilla palpation: normal palpation of the breasts and normal palpation of the axillae Resp Effort & Inspection: normal respiratory effort GI Inspection: Yes normal to inspection, No Abdominal wall edema and No distended Palpation (GI): Soft to palpation and nontender Other: External mons pubis within normal limits patient has menses. Pelvic exam deferred but full teaching about exactly what it involves with showing and telling of speculum and how we do Pap smear and testing for infection and the bimanual exam all done. External Female Exam: normal external appearance Neuro General: patient oriented x3 Assessment & Plan Assessment & Plan (1) Well woman exam (no gynecological exam): Comment: External exam only along with full teaching about what the speculum and pelvic exam will involve when she gathers her courage. Code(s): Z00.00 - Encounter for general adult medical examination without abnormal findings Category: Medical (2) Microcytic anemia: Code(s): D50.9 - Iron deficiency anemia, unspecified Category: Medical (3) Iron deficiency anemia: Code(s): D50.9 - Iron deficiency anemia, unspecified Category: Medical (4) Screening for malignant neoplasm of cervix: Comment: Did not receive Gardasil as a young person. Has never had sex and is still nervous about getting 1st exam and pap, declined for today.... Code(s): Z12.4 - Encounter for screening for malignant neoplasm of cervix Category: Medical (5) Elevated blood pressure reading: Comment: Noted in chart discussed diet and recommend keeping an eye on it Code(s): R03.0 - Elevated blood-pressure reading, without diagnosis of hypertension Category: Medical Plan -----Discussed in this visit the following: healthy balanced diet, regular and consistent exercise, getting recommended health screens, doing the best she can for her particular health concerns, kegel exercises, pap smear screening and followup recommendations, mammography screening and SBE, normal changes in cycles in her life stage--- . Full teaching about what is involved with the pelvic exam done. Patient is going to make a follow-up appointment when she feels she is ready and I the explain to her everything that was involved in the exam and how to best handle it With ease She is going to continue on the meds that she was recommended through her primary care provider. Discussed that any testing for beta thalassemia would be done through her primary as part of the anemia workup if it were deemed necessary She has already had her 1st mammogram. RTC for 1st pelvic and Pap when ready. Coding Level of Care Code New Pt Prev Care 40-64y(46142) Diagnoses Well woman exam (no gynecological exam) Z00.00 Microcytic anemia D50.9 Iron deficiency anemia D50.9 Screening for malignant neoplasm of cervix Z12.4 Elevated blood pressure reading R03.0
[2025-05-21 14:59] VITALS: BP 140/66; BMI 29.2
--- OUTSIDE RECORDS SUMMARY | 2025-05-21 18:07 | XMS_ITS | Data Portability ---
Author Organization [facility], [address] Address [address] [place] [address] Assessment No assessment recorded. Plan of Treatment Reminders Order Date Submit Date Provider Last Modified By Organization Details Last Modified Time Details Appointments None recorded. Lab rapid SARS CoV 2 Ag, QL IA, respiratory specimen [address] [place] [id number], [address], 14:53:56 Referral None recorded. Procedures None recorded. Surgeries None recorded. Imaging None recorded. Medication Orders benzonatate 200 mg capsule 2021 [email or web address] [facility]/Pharmacy #[id number], [address] [place], [address], 14:53:56 loratadine 10 mg tablet [address]/Pharmacy #[id number], [address] [place], [address], 15:21:12 Patient TargetsNo targets recorded. Patient Instructions Encounter Date Encounter Id Patient Instructions Last Modified By Organization Details Last Modified Time 05/07/2022 [id number] coronavirus (covid-19): care instructions [place] [id number] Not available 05/07/2022 14:53:56 You have been [...] this over a decongestant. 3. Saline Nasal [place] 4. Salt Water Gargles. I would be [...] AND HUMAN SERVICES Thank you for visiting [place] today, please feel free to call our office you have any questions or concerns. [email or web address] Not available 05/07/2022 14:39:52 Reason for Referral None Reported. Results Created Date Observation Date Name Description Value Unit Range Abnormal Flag Note LastModifiedBy Organization Detail LastModifiedTime 05/07/20 22 05/07/2022 rapid SARS CoV 2 Ag, QL IA, respi rator y speci men Unknown Analyte Normal =Negat pavithra Not Available [id number] [address], [address], 05/07/2022 14:08:37 05/07/20 22 05/07/2022 rapid SARS CoV 2 Ag, QL IA, respi rator y speci men Unknown Analyte positi ve Not Available [facility] [address], [address], 05/07/2022 14:08:37 Result Notes None recorded. Problems [...] mm[Hg] JESUS CALDERON [address] [place], [address], [place] - [facility] 05/07/2022 15:21:12 Date [...] Updated DateTime 05/07/2022 158.75 cm 30.1 kg/m2 53141.93 g FOSTER VIOLET SHERIDAN [place] - [facility] 05/07/2022 14:10:22 Social History Question Answer Notes LastModified by PositiveID Details LastModified Time Tobacco Smoking Status Never Smoker FOSTER dillon, [place] - [facility] 05/07/2022 14:09:56 What Is The Highest Grade Or Level Of School You Have Completed Or The Highest Degree You Have Received? [id number] [email or web address] Information not available 05/07/2022 What Is [...] Functional Status Question Answer Note LastModified by PositiveID Details LastModified Time Do you use any [...] ICD10 Code Diagnosis IMO Codes Diagnosis Note [id number] [address] [place] [address] 10/28/2021 09:11:34 10/28/2021 12:15:50 [id number] [address] [place] [address] 10/02/2021 09:02:22 10/02/2021 10:09:21 [id number] [address] [place] [address] 05/01/2021 08:46:44 05/01/2021 12:06:31 [id number] JESUS CALDERON [address] [place] [address] 05/07/2022 10:32:52 05/07/2022 14:52:27 COVID-19 [id number] U07.1 Health Concerns Section Related Observation LastModified by Organization Detai ls LastModified Time None Recorded Concern Status LastModified by Organization Details LastModified Time None Recorded Advance Directives Directive None Recorded Payers Insurance Date Sequence Insurance Name Policy Number Policy [place] Covered Member ID [place] Member ID Guarantor Name 05/26/2022 1 [facility] [id number] Mahnaz Pak [id number] Mahnaz Pak Notes Date Note Type [...] of asthma. JESUS CALDERON [address] [place], [address], [place] - [facility] 05/07/2022 15:21:20 OBGyn Episode No OBEpisode recorded.
== END 2025-05-21 16:02 | disposition home or self-care (01) ==
LOC: HO.HWS 14:52
PROVIDERS: PCP Internal Medicine; Visit Provider Advanced Practice Midwife
DX: Z01.419 Encounter for gynecological examination (general) (routine) without abnormal findings (principal); D50.9 Iron deficiency anemia, unspecified; Z12.4 Encounter for screening for malignant neoplasm of cervix; R03.0 Elevated blood-pressure reading, without diagnosis of hypertension
CPT/HCPCS: 99386

== ENCOUNTER → 2025-05-21 14:52 | Outpatient (BNVA) | payer OTHER, SELFPAY | PROVIDERS: PCP Internal Medicine; Visit Provider Advanced Practice Midwife | DX: Z01.419 Encounter for gynecological examination (general) (routine) without abnormal findings (principal); D50.9 Iron deficiency anemia, unspecified; R03.0 Elevated blood-pressure reading, without diagnosis of hypertension | CPT/HCPCS: 99386 ==